=== PATIENT | male | born 1995 | race Caucasian/White ===

== ENCOUNTER 2019-06-18 16:21 | Emergency (ER) | payer OTHER ==
[2019-06-18 17:04] LABS: CHLORIDE,CL 103 mmol/L (98-107); SODIUM,NA 141 mmol/L (136-145)
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
[2019-06-18 17:36] LABS: BARBITURATE SCREEN,URINE NEGATIVE (NEGATIVE); BENZODIAZEPINES SCREEN,URINE NEGATIVE (NEGATIVE); TCA SCREEN,URINE NEGATIVE (NEGATIVE); THC SCREEN,URINE 50 NG/ML NEGATIVE (NEGATIVE)
[2019-06-18] MEDS ORDERED: Magnesium Oxide 400 MG Tab PO ONE (17:54)
== END 2019-06-18 18:25 | disposition home or self-care (01) ==
LOC: LL.ED 16:21
DX: S13.4XXA Sprain of ligaments of cervical spine, initial encounter (principal); T14.8XXA Other injury of unspecified body region, initial encounter; M54.6 Pain in thoracic spine; E83.42 Hypomagnesemia; V44.5XXA Car driver injured in collision with heavy transport vehicle or bus in traffic accident, initial encounter; Y92.410 Unspecified street and highway as the place of occurrence of the external cause
CPT/HCPCS: 36000; 36415; 72125; 80053; 80305-QW; 81001; 83735; 85025; 99285-25; G0480